=== PATIENT | male | born 1965 | race Caucasian/White ===

== ENCOUNTER → 2023-08-30 11:32 | Outpatient (BNVA) | payer OTHER, SELFPAY | PROVIDERS: Family Provider Family Medicine; PCP Family Medicine; Visit Provider Nurse Practitioner | DX: R09.81 Nasal congestion (principal); J01.90 Acute sinusitis, unspecified; J01.40 Acute pansinusitis, unspecified | CPT/HCPCS: 87400 ==

== ENCOUNTER 2023-09-10 22:24 | Emergency (ER) | payer OTHER, MEDICAID, SELFPAY ==
[2023-09-10 22:34] VITALS: BP 136/69; PULSE 104; RESP 14; TEMP 37.2; O2SAT 96
--- NOTE | 2023-09-10 22:52 | W.ED.EXTPRO ---
HPI - Extremity Problem General: Chief complaint: Extremity Problem,Nontraumatic Stated complaint: Left leg burning from knee down, headache Time Seen by Provider: 09/10/23 22:51 History of Present Illness: 58-year-old male patient with a history of lupus comes in today with complaints of left lower leg pain. Patient reports burning and pain to the posterior leg along the Achilles tendon. Some mild swelling is noted to the ankle. Pulses are intact. Patient denies any fever or chills. Patient appears nontoxic. Review of Systems General: Reports: 10 or more systems reviewed and unremarkable except in HPI and below Musc: Reports: extremity pain (Left ankle and lower leg pain) PFS ED PFSH: Social History Smoking and tobacco/nicotine status: current every day tobacco/nicotine user Physical Exam Const: COMMON NORMALS: alert HENMT: COMMON NORMALS: normocephalic HEAD & SCALP: normocephalic Neck/C-Spine: COMMON NORMALS: full ROM Chest: COMMONS NORMALS: normal inspection of the chest Resp: COMMON NORMALS: normal respiratory effort and clear to auscultation bilaterally AUSCULTATION: clear to auscultation bilaterally Cardio: COMMON NORMALS: regular rate and regular rhythm RATE: regular rate RHYTHM: regular rhythm GI: COMMON NORMALS: Soft to palpation and non-tender PALPATION: Yes Soft to palpation : COMMON NORMALS: Yes no CVA tenderness BLADDER/KIDNEY EXAM: Yes no CVA tenderness Back/Pelvis: COMMON NORMALS: no CVA tenderness Extremity: LEFT LOWER EXTREMITY: Yes ankle joint (Achilles tendon pain and discomfort. Mild swelling to the ankle.) Left ankle: Yes inspection, Yes palpation, Yes ROM and Yes neurovascular exam Neuro: SENSORIUM/ORIENTATION: Yes alert Skin: COMMON NORMALS: turgor normal GENERAL SKIN EXAM: turgor normal Course Vital Signs: Vital signs: Vital Signs Temperature 98.9 F 09/10/23 22:34 Pulse Rate 95 09/10/23 23:06 Respiratory Rate 14 09/10/23 22:34 Blood Pressure 119/65 09/10/23 23:06 Pulse Oximetry 92 09/10/23 23:06 Oxygen Delivery Me thod Room Air 09/10/23 23:06 MDM - Extremity (Nontraumatic) Medical Decision Making Patient comes in today with burning and pain to the left lower extremity. On exam patient has tenderness along the Achilles tendon sheath. Patient also has some mild swelling to the ankle. Pulses and sensation are intact. No significant redness or swelling is noted to the lower extremity. Differential diagnosis includes arthritis, tendinitis, sprain. X-ray was unremarkable. CBC and CMP was unremarkable. Patient sed rate was bumped a little bit 23 and CRP was 67. Uric acid was normal. Patient seems to have a flare of Achilles tendinitis. Patient be put on naproxen and given some hydrocodone for his pain. Patient reported understanding agreed to plan. Lab Data 09/10/23 23:13 09/10/23 23:13 Radiology Impressions Ankle X-Ray 09/10/23 23:04 IMPRESSION: No acute findings. Laboratory Results WBC 7.77 10^3/uL (3.29-11.43) 09/10/23 23:13 RBC 4.32 10^6/uL (3.85-5.65) 09/10/23 23:13 Hgb 12.60 g/dL (11.27-16.99) 09/10/23 23:13 Hct 38.0 % (37-53) 09/10/23 23:13 MCV 88.0 fl (82-101) 09/10/23 23:13 MCH 29.2 pg (27-33) 09/10/23 23:13 MCHC 33.2 g/dL (30-55) 09/10/23 23:13 RDW 13.2 % (12.1-15.1) 09/10/23 23:13 Plt Count 237 10^3/cmm (157-399) 09/10/23 23:13 MPV 9.6 fL (7.4-10.4) 09/10/23 23:13 Neut % (Auto) 64.1 % 09/10/23 23:13 Lymph % (Auto) 23.8 % 09/10/23 23:13 [place] % (Auto) 9.9 % 09/10/23 23:13 Eos % (Auto) 1.0 % 09/10/23 23:13 Baso % (Auto) 0.9 % 09/10/23 23:13 Neut # (Auto) 4.98 10^3/uL (1.8-7.7) 09/10/23 23:13 Lymph # (Auto) 1.9 10^3/uL (0.8-4.8) 09/10/23 23:13 [place] # (Auto) 0.8 10^3/uL (0.2-0.9) 09/10/23 23:13 Eos # (Auto) 0.1 10^3/uL (0.0-0.8) 09/10/23 23:13 Baso # (Auto) 0.1 10^3/uL (0.0-0.1) 09/10/23 23:13 Nucleated RBC % (auto) 0 % 09/10/23 23:13 Nucleated RBCs # 0.0 /100WBC 09/10/23 23:13 ESR 23 mm/hr (0-10) H 09/10/23 23:13 Sodium 137 mmol/L (136-145) 09/10/23 23:13 Potassium 3.8 mmol/L (3.5-5.1) 09/10/23 23:13 Chloride 102 mmol/L (98-107) 09/10/23 23:13 Carbon Dioxide 25 mmol/L (22-29) 09/10/23 23:13 Anion Gap 13.8 (5-19) 09/10/23 23:13 BUN 14 mg/dL (6-20) 09/10/23 23:13 Creatinine 0.6 mg/dL (0.7-1.2) L 09/10/23 23:13 GFR Calculation 138.4 mL/min (90-130) H 09/10/23 23:13 Glucose 100 mg/dL (65-115) 09/10/23 23:13 Calculated Osmolality 285 mOsm/kg (285-295) 09/10/23 23:13 Uric Acid 4.7 mg/dL (3.4-7.0) 09/10/23 23:13 Calcium 8.9 mg/dL (8.5-10.5) 09/10/23 23:13 Total Bilirubin 0.2 mg/dL (0.15-1.2) 09/10/23 23:13 AST 18 U/L (0-40) 09/10/23 23:13 ALT 12 U/L (0-41) 09/10/23 23:13 Alkaline Phosphatase 68 U/L (40-130) 09/10/23 23:13 C-Reactive Protein 67.1 mg/L (0.0-4.9) H 09/10/23 23:13 Total Protein 7.7 g/dL (6.6-8.7) 09/10/23 23:13 Albumin 3.0 g/dL (3.5-5.2) L 09/10/23 23:13 Globulin 4.7 g/dL (1.3-4.6) H 09/10/23 23:13 XR interpretation done by ED provider, pending radiology final review Discharge Plan Discharge Patient Disposition: Home Clinical Impression: Achilles tendinitis of left lower extremity Condition: Stable Prescriptions: New naproxen 500 mg tablet 500 mg PO BID Qty: 20 0RF hydrocodone-acetaminophen 5-325 mg tablet 1 tab PO Q6H PRN (Reason: pain) Qty: 10 0RF No Action omeprazole magnesium [Acid Chief Of Vital Statistics (omeprazole)] 20 mg capsule,delayed release(DR/EC) 20 mg PO DAILY Qty: 30 0RF doxycycline hyclate 100 mg tablet 100 mg PO BID 7 Days Qty: 14 0RF Discharge Orders: Discharge ED (Routine); Ordered 09/10/23 Ordered By: Shukri Osullivan Other Ambulatory Orders: DME: Miscellaneous (Order) Location: None Selected Ordered By: Shukri Osullivan Referrals: Chrissy Delgado DO [Primary Care Provider] - Discharge Diet: Usual diet Discharge Activity: Increase activity as tolerated Patient Instructions: Achilles Tendinitis (ED) Activity Restrictions/Additional Instructions: Wear walking boot until pain resolves. Use crutches until he can bear weight comfortably on the foot. Use naproxen 500 mg twice a day for pain and inflammation. Use hydrocodone for severe pain. Use ice and heat for further pain relief. Follow-up with primary care for further instructions. Return to ER for new concerns. A case management referral has been placed for you with podiatry for further evaluation and treatment. Coding Level of Care Code ED [employer] for Diego Murphy
--- NOTE | 2023-09-10 23:04 | XRR_ITS ---
PROCEDURE INFORMATION: Exam: XR Left Ankle Exam date and time: 09/10/2023 11:19 PM Age: 58 years old Clinical indication: Swelling, leg or foot; Left; Patient HX: Nki, swelling and pain to medial aspect of ankle TECHNIQUE: Imaging protocol: Radiologic exam of the left ankle. Views: 3 or more views. COMPARISON: CR XR tibia fibula LT 2V [id number] 09/29/2016 7:46 PM FINDINGS: Bones/joints: Normal. Soft tissues: Normal. XR/XR ankle LT min 3V* [id number] IMPRESSION: No acute findings.
[2023-09-10 23:06] VITALS: BP 119/65; PULSE 95; O2SAT 92
[2023-09-10 23:19] LABS: Erythrocyte Sedimentation Rate 23 mm/hr (0-10)
[2023-09-10 23:20] LABS: Basophils # 0.1 10^3/uL (0.0-0.1); Basophils % 0.9 %; Eosinophils # 0.1 10^3/uL (0.0-0.8); Lymphocytes # 1.9 10^3/uL (0.8-4.8); Lymphocytes % 23.8 %; Mean Corpuscular HGB Conc 33.2 g/dL (30-55); Mean Corpuscular Hemoglobin 29.2 pg (27-33); Mean Platelet Volume 9.6 fL (7.4-10.4); Monocytes # 0.8 10^3/uL (0.2-0.9); Monocytes % 9.9 %; Neutrophils # 4.98 10^3/uL (1.8-7.7); Neutrophils % 64.1 %; Nucleated Red Blood Cells % 0 %; Platelet Count 237 10^3/cmm (157-399); Red Blood Count 4.32 10^6/uL (3.85-5.65); Red Cell Distribution Width 13.2 % (12.1-15.1); White Blood Count 7.77 10^3/uL (3.29-11.43)
[2023-09-10] MEDS: HYDROcodone-acetaminophen 7.5-325 mg Tablet 1 TAB PO (23:27)
[2023-09-10 23:41] LABS: Alanine Aminotransferase 12 U/L (0-41); Alkaline Phosphatase 68 U/L (40-130); Anion Gap 13.8 (5-19); Aspartate Amino Transferase 18 U/L (0-40); Blood Urea Nitrogen 14 mg/dL (6-20); C Reactive Protein 67.1 mg/L (0.0-4.9); Calcium 8.9 mg/dL (8.5-10.5); Carbon Dioxide 25 mmol/L (22-29); Chloride 102 mmol/L (98-107); Globulin 4.7 g/dL (1.3-4.6); Glomerular Filtration Rate 138.4 mL/min (90-130); Glucose 100 mg/dL (65-115); Osmolality Calculated 285 mOsm/kg (285-295); Potassium 3.8 mmol/L (3.5-5.1); Sodium 137 mmol/L (136-145); Total Bilirubin 0.2 mg/dL (0.15-1.2); Total Protein 7.7 g/dL (6.6-8.7); Uric Acid 4.7 mg/dL (3.4-7.0)
--- NOTE | 2023-09-10 23:55 | DCPLANNER ---
Message sent to podiatry for a follow up Achilles tendinitis
[2023-09-11 00:04] VITALS: BP 124/73; PULSE 91; O2SAT 94
== END 2023-09-11 00:06 | disposition home or self-care (01) ==
PROVIDERS: Emergency Provider Nurse Practitioner Family; Family Provider Family Medicine; PCP Family Medicine
DX: M76.62 Achilles tendinitis, left leg (principal); Z72.0 Tobacco use
CPT/HCPCS: 36415; 73610; 80053; 84550; 85025; 85651; 86140; 99284